=== PATIENT | male | born 1935 | race Caucasian/White ===

== ENCOUNTER 2018-04-20 02:50 | Emergency (ER) | payer MEDICARE ==
[~2018-04-20] VITALS: Ht 180.3 cm; Wt 122.7 kg
[2018-04-20] MEDS ORDERED: [UNRECOGNIZED DRUG - REMARK] PO (03:31)
[2018-04-20] MEDS ORDERED: HYPERTENSION PO (03:31)
[2018-04-20 04:08] VITALS: BP 176/79
== END 2018-04-20 04:09 | disposition home or self-care (01) ==
LOC: EMS 02:51
DX: T83.038A Leakage of other urinary catheter, initial encounter (principal); E78.00 Pure hypercholesterolemia, unspecified; I10 Essential (primary) hypertension

== ENCOUNTER 2018-04-25 01:11 | Emergency (ER) | payer MEDICARE ==
[~2018-04-25] VITALS: Ht 180.3 cm; Wt 122.7 kg
[~2018-04-25 01:11] MED LIST: HYPERTENSION PO; [UNRECOGNIZED DRUG - REMARK] PO
[2018-04-25 02:06] LABS: APPEARANCE,URINE CLOUDY (CLEAR); BILIRUBIN,URINE NEGATIVE (NEGATIVE); GLUCOSE, URINE (UA) NEGATIVE (NEGATIVE); KETONES,URINE NEGATIVE (NEGATIVE); LEUKOCYTE ESTERASE ,URINE LARGE (NEGATIVE); NITRATE,URINE NEGATIVE (NEGATIVE); OCCULT BLOOD,URINE MODERATE (NEGATIVE); PH,URINE 6.5 (5.0-8.0); PROTEIN,URINE POS 1+ (NEGATIVE); UROBILINOGEN,URINE 0.2 mg/dL (<=1.0)
[2018-04-25 02:17] LABS: WBC,URINE >100 /HPF (0-5)
[2018-04-25 02:18] LABS: BACTERIA,URINE None Seen /HPF (None Seen); SQUAMOUS EPITHELIAL CELL,UR None Seen /LPF (None Seen)
[2018-04-25] MEDS ORDERED: SULFAMETHOX/TRIMETH DS 800-160 MG/TABLET PO ONE (04:00)
[2018-04-25 04:14] VITALS: BP 127/72
== END 2018-04-25 05:12 | disposition home or self-care (01) ==
LOC: EMS 01:11
DX: T83.018A Breakdown (mechanical) of other urinary catheter, initial encounter (principal); N39.0 Urinary tract infection, site not specified; E66.9 Obesity, unspecified; E78.00 Pure hypercholesterolemia, unspecified; I10 Essential (primary) hypertension; Z68.37 Body mass index [BMI] 37.0-37.9, adult
CPT/HCPCS: 51702; 87086

== ENCOUNTER 2018-06-07 00:54 | Emergency (ER) | payer MEDICARE ==
[~2018-06-07] VITALS: Ht 180.3 cm; Wt 118.2 kg
[2018-06-07] MEDS ORDERED: DOCUSATE SODIUM 100 MG CAPSULE PO ONE (02:00)
[2018-06-07 04:24] LABS: APPEARANCE,URINE CLOUDY (CLEAR); BILIRUBIN,URINE NEGATIVE (NEGATIVE); GLUCOSE, URINE (UA) NEGATIVE (NEGATIVE); KETONES,URINE NEGATIVE (NEGATIVE); LEUKOCYTE ESTERASE ,URINE LARGE (NEGATIVE); NITRATE,URINE NEGATIVE (NEGATIVE); OCCULT BLOOD,URINE LARGE (NEGATIVE); PH,URINE 6.5 (5.0-8.0); PROTEIN,URINE POS 1+ (NEGATIVE); UROBILINOGEN,URINE 0.2 mg/dL (<=1.0)
[2018-06-07 04:36] LABS: BACTERIA,URINE Few /HPF (None Seen); WBC,URINE 51-100 /HPF (0-5)
[2018-06-07 04:37] LABS: SQUAMOUS EPITHELIAL CELL,UR Rare /LPF (None Seen)
[2018-06-07] MEDS ORDERED: CIPROFLOXACIN HCL 250 MG TABLET PO ONE (04:45)
[2018-06-07 05:10] VITALS: BP 140/72
== END 2018-06-07 05:13 | disposition home or self-care (01) ==
LOC: EMS 00:54
DX: T83.091A Other mechanical complication of indwelling urethral catheter, initial encounter (principal); N39.0 Urinary tract infection, site not specified; E78.00 Pure hypercholesterolemia, unspecified; I10 Essential (primary) hypertension; Y73.2 Prosthetic and other implants, materials and accessory gastroenterology and urology devices associated with adverse incidents
CPT/HCPCS: 87086